=== PATIENT | male | born 1960 | race Caucasian/White ===

== ENCOUNTER → 2020-07-01 07:04 | Outpatient (CLI) | payer BC, SELFPAY ==
[2020-07-01 07:53] LABS: Add Manual Diff / Slide Review NO; Basophils Absolute Auto 0 /uL (0-100); Basophils Percent Auto 1.3 % (0-2); Eosinophils Absolute Auto 100 /uL (0-450); Eosinophils Percent Auto 3.5 % (2-4); Hematocrit 40.3 % (41-53); Hemoglobin 13.5 g/dL (13.5-17.5); Lymphocytes Absolute Auto 1000 /uL (1100-4500); Lymphocytes Percent Auto 30.1 % (25-40); Mean Corpuscular HGB Conc 33.5 % (30-36); Mean Corpuscular Hemoglobin 30.1 PG (26-34); Mean Corpuscular Volume 89.8 fL (80-100); Monocytes Absolute Auto 400 /uL (0-900); Monocytes Percent Auto 12.3 % (3-14); Neutrophils Absolute Auto 1700 /uL (1500-7000); Neutrophils Percent Auto 52.8 % (50-75); Platelet Count 281 X10^3/uL (150-400); Red Blood Cell Count 4.48 X10^6/uL (4.5-5.9); Red Cell Distribution Width 13.6 % (11.6-14.8); White Blood Cell Count 3.3 X10^3/uL (4.5-11.0)
[2020-07-01 08:06] LABS: Hemoglobin A1C% w Est Avg Glu 5.5 % (4.0-6.0)
[2020-07-01 08:41] LABS: BUN Creatinine Ratio 20.6 (6-22); Blood Urea Nitrogen 14 mg/dL (9-20); Carbon Dioxide 29 mmol/L (22-32); Chloride 96 mmol/L (98-107); Estimated Glomerular Filt Rate > 60.0 mL/min (>60); Glucose 93 mg/dL (70-100); HEMOLYSIS < 15 (0-50); Potassium 4.3 mmol/L (3.4-5.1); Sodium 126 mmol/L (137-145)
== END ==
PROVIDERS: Referring Provider Orthopaedic Surgery; Visit Provider Orthopaedic Surgery
DX: Z01.818 Encounter for other preprocedural examination (principal); M25.561 Pain in right knee; R73.9 Hyperglycemia, unspecified; Z01.812 Encounter for preprocedural laboratory examination
CPT/HCPCS: 36415; 80048; 83036; 85025; 93005

== ENCOUNTER → 2020-08-01 09:30 | Outpatient (CLI) | payer BC, SELFPAY ==
[2020-08-01 11:50] LABS: COVID19 -Nasal RAPID Negative (Negative)
== END ==
PROVIDERS: Referring Provider Physician Assistant; Visit Provider Physician Assistant
DX: Z20.828 Contact with and (suspected) exposure to other viral communicable diseases (principal)
CPT/HCPCS: 87635

== ENCOUNTER 2020-08-03 08:33 | Day surgery (SDC) | payer BC, SELFPAY ==
[2020-07-28 08:32] VITALS: BMI 23.3
[2020-08-03] VITALS (18 sets, daily range): BP systolic 93–128; BP diastolic 59–87; PULSE 64–82; RESP 10–20; TEMP 36.1–37.2; O2SAT 93–99; BMI 23.3
[2020-08-03 09:13] LABS: Sodium 130 mmol/L (137-145)
[2020-08-03] MEDS: PREGABALIN 75 MG CAPSULE PO (09:17)
[2020-08-03] MEDS: CELECOXIB 200 MG CAPSULE PO (09:17)
[2020-08-03] MEDS: ACETAMINOPHEN 325 MG TABLET 975 MG PO (09:20)
--- NOTE | 2020-08-03 09:50 | PM.PREOP ---
Pre-operative Note COVID-19 COVID-19 status: Negative Result date/Date tested (Pos, Neg/Pending): 08/01/20 Interval Note History & Physical reviewed/Exam performed by Physician: Yes Changes to H&P: No
--- NOTE | 2020-08-03 10:01 | PM.OP.1 ---
Operative Date/Time/Diagnoses Date of procedure: 08/03/20 Time of procedure: 12:35 Pre-op diagnosis: Right knee osteoarthritis Post-op diagnosis: same Procedure & Clinicians Procedure: Right total knee replacement Same procedure as scheduled: Yes Indications: The patient has had progressively worsening right knee pain with radiographic changes consistent with arthritis. Non-operative management has failed and the patient has requested total knee replacement. The risks, benefits and alternatives to surgery were discussed with the patient prior to proceeding. Risks discussed included, but were not limited to, failure to relieve pain, stiffness, infection, nerve damage, deep venous thrombosis, pulmonary embolism, stroke, coma, heart attack, permanent paralysis and , as well as the potential need for eventual revision of the prosthetic. Surgeon: Parish Meadows Certified Indoor Environmentalist: Namrata Aden Click Yes if Unassisted: No Anesthesia Type: General, Spinal and Local Operative Notes Findings: Widespread hemosiderin deposition. Large effusion. Severe cystic arthritic change the patellofemoral joint and significant medial osteoarthritis. Closure Type: primary Specimen(s): none sent Prosthetic devices, grafts, tissues, transplants, or devices: Implants used in this procedure were manufactured by the [employer] and included the BCS II Journey total knee replacement with a size 7 right Oxinium femur, a size 7 non porous tibial base plate, a 10 mm cross-linked polyethylene insert and a 41 mm oval Lillian II patella. Applied: implant(s) Blood products transfused: none Procedure in detail: The patient was seen in the pre-operative area, where the patient identified the right knee as the operative site and this was marked with my initials. The patient received pre-operative antibiotics, and was taken to the operating room and placed on the operative table in the supine position. After satisfactory anesthesia, a real time trader out was performed. The right leg was encircled with a tourniquet about the proximal thigh, and the leg was prepared from the toes to the tourniquet with ChloroPrep in the usual fashion and draped through sterile drapes. The leg was elevated and exsanguinated with Eschmark bandage and the tourniquet inflated to 250 mmHg pressure. The knee was approached through an approximately 18 cm incision centered over the patella and carried into the knee through a medial parapatellar arthrotomy. The anterior osteophytes and soft tissues were removed. The rotational landmarks of Millard's line and the transepicondylar axis were marked on the femur with electrocautery, and intramedullary guide holes for the femur and tibia were created. The distal femoral cut was made in 6 degrees of valgus using the intramedullary guide at the primary cut setting. The proximal tibial cut was then made using the intramedullary guide, taking 9 mm of bone off the less involved side. The extension gap was checked and the rotation of the femoral component confirmed with the gap balancing system. The anterior, posterior and chamfer cuts were then made. The posterior osteophytes and soft tissues were then removed. The posterior capsule was injected with part of a mixture of 60 ml 0.25% Marcaine mixed with 20 ml Exparel and 4 mg of morphine for post-operative pain control. The remainder of this mixture was injected into the capsule and subcutaneous tissues during cement curing. The tibia was prepared with the rotation set by an extra medullary guide. Trial tibial and femoral components were then placed and the intercondylar notch cut through the femoral trial. Range of motion was 0-135 degrees, with good stability throughout the range. The patella was then cut to accommodate the patellar prosthetic. There was no need for a lateral release. The trials were then removed, and the femoral hole plugged with a bone plug. The bone was prepared with pulsatile lavage, and dried with a sponge. Cement was applied and the final prosthetics placed. Excess cement was removed during and after cement curing. After confirming there was no extruded cement posteriorly, the final tibial insert was placed. The knee was copiously irrigated and the tourniquet deflated. Hemostasis was obtained. The capsule was closed with interrupted # 2 polyester suture. The subcutaneous layer was closed with 3-0 Vicryl, and the skin with a running 3-0 V-Lock suture and Dermabond. An Aquacel Ag dressing was applied and the patient was taken to recovery having tolerated the procedure well. Complications: none Post-operative Condition: stable Disposition: PACU Plan for aftercare: The patient will be maintained on a standard total knee replacement protocol with weight bearing as tolerated. The patient will receive aspirin and sequential compression devices for DVT prophylaxis. The patient will be discharged home when safe for the home environment.
[2020-08-03] MEDS: LACTATED RINGERS 1,000 ML 42 ML IV (10:29)
[2020-08-03] MEDS: CEFAZOLIN 2 GM/100 ML FROZ.PIGGY IV (10:48)
[2020-08-03] MEDS: TRANEXAMIC ACID 1,000 MG VIAL 2000 MG INJ (11:04)
--- NOTE | 2020-08-03 11:14 | SUR.OPER ---
Supine on padded OR bed. Pillow under head, arms secured on padded armboards <90 degree abduction. Safety belt across torso. Non-operative leg secured with tape over blanket over lower leg. Operative leg secured in DeMayo/Leobardo positioner.
[2020-08-03] MEDS: BUPIVACAINE LIPOSOME 266 MG/20 ML VIAL INJ (11:26)
[2020-08-03] MEDS: MORPHINE 4 MG/ML INJ INJ (11:27)
[2020-08-03] MEDS: BUPIVACAINE 0.25% W/ EPI 30 ML VIAL 60 ML INJ (11:28)
[2020-08-03] MEDS: TRANEXAMIC ACID 1,000 MG VIAL 1000 MG INJ (12:07)
[2020-08-03] MEDS: RYTARY 3 EACH PO (13:07)
--- NOTE | 2020-08-03 13:33 | DI.RAD.S_ITS ---
PROCEDURE: XR KNEE RT 1TO2V INDICATIONS: post op TKA. TECHNIQUE: 2 view(s) of the knee acquired. COMPARISON: None. FINDINGS: Bones: Patient is status post knee joint arthroplasty. Hardware components are in expected positions. Visualized bony structures are intact. Soft tissues: Overlying postoperative changes are noted. IMPRESSION: Expected postsurgical change for right knee arthroplasty. Dictated by: Krys Harley MD, PhD on 08/03/2020 at 13:27 Approved by: Krys Harley MD, PhD on 08/03/2020 at 13:28
[2020-08-03] MEDS: ACETAMINOPHEN 325 MG TABLET 650 MG PO ×2 (14:40→20:24)
[2020-08-03] MEDS: LACTATED RINGERS 1,000 ML 100 ML IV (14:41)
[2020-08-03] MEDS: IBUPROFEN 400 MG TABLET PO ×3 (14:43→20:24)
[2020-08-03] MEDS: CARBIDOPA LEVODOPA 3 EACH PO ×2 (18:06→21:10)
[2020-08-03] MEDS: ASPIRIN EC 81 MG TABLET PO (20:24)
[2020-08-03] MEDS: DOCUSATE 100 MG CAPSULE PO (20:24)
--- NOTE | 2020-08-03 22:57 | PC.NURSE ---
Evening Shift Note- Patient unable to void since arrival to unit. Bladder scan showed over 500cc's in bladder. Straight cath patient, drained 800cc's clear kaelyn uribne. Patient tolerated.
[2020-08-04] MEDS: IBUPROFEN 400 MG TABLET PO ×2 (00:47→08:34)
[2020-08-04] MEDS: LACTATED RINGERS 1,000 ML 100 ML IV (00:48)
[2020-08-04] MEDS: CARBIDOPA LEVODOPA 3 EACH PO ×2 (04:34→08:40)
[2020-08-04 04:35] VITALS: BP 129/84; PULSE 84; RESP 18; O2SAT 99
--- NOTE | 2020-08-04 04:46 | PC.NURSE ---
0430 Patient requesting Carbodopa-Levodopa medication. Patient states that the times scheduled by pharmacy are an hour later than his normally scheduled times. He also states that he hasn't been able to urinate postoperatively. Patient states that taking his medication now should help him urinate. Will speak with patient's primary nurse to facilitate conversation with pharmacy to adjust patient's scheduled times for his Carbodopa-Levodopa.
[2020-08-04 06:12] LABS: Hematocrit 35.9 % (41-53); Hemoglobin 12.4 g/dL (13.5-17.5)
--- NOTE | 2020-08-04 07:37 | P.DS_ITS ---
History of Present Illness History of Present Illness Date Patient Seen: 08/04/20 Time Patient Seen: 07:38 Chief complaint: Right Total Knee Arthroplasty *OPB* Narrative: The history and physical are contained in the chart previously completed note. Please refer to that note for this information. Discharge Providers Provider Date of admission: 08/03/20 Discharge Date: 08/04/20 Primary care physician: Doctor Villa MD Consults: 08/03/20 14:10 Consult to Discharge Planning Routine Comment: Consult to Physical Therapy Evaluate & Treat Comment: Physician Instructions: postop TKA protocol Discharge provider: Parish Meadows MD Summary Hospital Course Discharge Diagnosis: 1. Right knee osteoarthritis 2. Post hemorrhagic anemia 3. Postoperative urinary retention Hospital Course: The patient was admitted to the hospital and taken directly to the operating room on August 03, 2020. He underwent a right total knee replacement without difficulty. He was very comfortable overnight however he was unable to urinate and required a single episode a straight catheterization. At the time of this dictation he is undergoing a voiding trial after being administered Flomax. It is the intention that he be discharged later this morning. If he is unable to urinate by the time of discharge a urology consultation will be obtained. Status at Discharge Cognitive/behavioral status at discharge: oriented Functional status at discharge: uses cane/walker Overall status at discharge: patient is progressing back to baseline Time Spent with Patient Time spent: Less than 30 minutes Exam Vital Signs (past 8 hours): - 08/04/20 04:35 Pulse Rate 84 Respiratory Rate 18 Blood Pressure 129/84 Pulse Oximetry 99 Oxygen Delivery Method Room Air Oxygen Flow Rate 0 Narrative Exam Narrative: Right knee wound is dressed with no drainage on the bandage. Calf is soft. Light touch and motion are intact in the right lower extremity. Objective Labs Result Diagrams: 08/04/20 05:35 Labs: Laboratory Results - last 24 hr 08/03/20 08/04/20 08:45 05:35 Hgb 12.4 L Hct 35.9 L Sodium 130 L PFSH Medical History (Updated 07/28/20 @ 09:17 by Tavia Neal RN) Dyskinesia Hyponatremia Insomnia Nocturia Osteoarthritis Parkinson's disease (2004) RLS (restless legs syndrome) Scoliosis Surgical History (Updated 07/28/20 @ 09:17 by Tavia Neal RN) History of colonoscopy with polypectomy History of vasectomy S/P deep brain stimulator placement (2013) Social History household members: spouse Smoking Status: Never smoker alcohol intake: current Discharge Assessment & Plan Assessment and Plan Assessment: The patient is stable postoperative day 1 status post right total knee replacement. He is having minimal pain. He has a mild post hemorrhagic anemia which does not require treatment. As of this dictation he has not been able to urinate spontaneously. Plan of Treatment: We will mobilize the patient this morning. He is currently having a voiding trial after being administered Flomax. If he does not spontaneously void by the time of discharge we will obtain a Urology consult. Plan is for discharge this morning with follow-up in the office in 2 weeks. The patient has oxycodone at home. He also has muscle relaxer at home. He will be instructed to use low- dose aspirin twice a day for DVT prophylaxis. Discharge Plan Discharge Plan Patient Disposition: Home Discharge orders & Medications Discharge Orders: Discharge (Order); Ordered 08/04/20 Ordered By: Parish Meadows Prescriptions: New acetaminophen 325 mg Tablet 650 mg PO TID 30 Days Qty: 180 RF: 0 aspirin 81 mg Tablet,Delayed Release (Dr/Ec) 81 mg PO BID 42 Days Qty: 84 RF: 0 oxycodone 5 mg Tablet 5 mg PO Q4H PRN (Reason: Pain, Moderate (4-6)) Qty: 40 RF: 0 Continued ibuprofen 200 mg Capsule 400 mg PO Q6H PRN (Reason: Pain) RF: 0 Rytary 36.25-145 mg Capsule, Extended Release 3 cap PO 5XD RF: 0 Follow up/Referrals: Miscellaneous,DoctorMD [Primary Care Provider] - Parish Meadows MD [Physician] - 2 Weeks Diet/Activity/Treatments Diet: Diet as Tolerated and Regular Activity: You may bear weight as tolerated on your right leg. Cold/Heat Therapy: Apply ice for 15 minutes every hour as needed to the right knee for pain control. Skin/Wound/Dressing Care Report to your healthcare provider any signs of infection, such as:: chills, fever, night sweats, increased pain, unusual drainage and unusual redness Dressing: Remove the Ritesh wrap 3 days after surgery. You may then shower normally. Leave the deeper dressing in place until follow-up. If the central strip of the deeper dressing becomes saturated with either water or blood, gideon brooks call the office to have it evaluated. Visit Report/Discharge Packet Instructions: DI for Knee Replacement Stand Alone Forms: Surgery Discharge Discharge Data Primary Care Provider: Miscellaneous,Doctor Attending Provider: Parish Meadows
[2020-08-04 07:41] VITALS: BP 126/81; PULSE 81; RESP 14; TEMP 37.2; O2SAT 98
[2020-08-04] MEDS: TAMSULOSIN 0.4 MG CAPSULE PO (08:32)
[2020-08-04] MEDS: ASPIRIN EC 81 MG TABLET PO (08:34)
[2020-08-04] MEDS: DOCUSATE 100 MG CAPSULE PO (08:34)
[2020-08-04] MEDS: ACETAMINOPHEN 325 MG TABLET 650 MG PO (08:35)
--- NOTE | 2020-08-04 09:23 | CM.DANOTE ---
Addendum entered by Carol Puga LPN 08/04/20 11:02: Met now with pt as planned. Introduced self and role. Pt is found up, dressed, bags packed and confirms that he is feeling ready to go. PT Marifer did see him and has verbally cleared him for d/c to home setting today. Her note is pending. Pt confirms his will pick him up and be providing prn supportive assist. PCP: Dr. Camara, neurologist at [facility]: confirmed by pt. Home today as planned. Addendum entered by Carol Puga LPN 08/04/20 09:24: DCP: assessment: case received, EMR reviewed. DC order from Dr. Meadows noted. PT is ordered but no notes are available at this time for review. PT is a 59 year old male who admitted yesterday for a scheduled R TKA. Payer: [facility] [place] Pt carries a diagnosis of Parkinson's disorder and is on medication for same. P: discuss in Team Rounds and then meet with pt to follow up for d/c issues/options. Original Note: Discharge Planning/Care Management CM Discharge Assessment Start: 08/04/20 09:22 Freq: Status: Active Protocol: Document 08/04/20 09:22 ITV (Rec: 08/04/20 09:23 [facility] [id number]) Discharge Planning Assessment Advance Directives? No Advance Directives on File No History Provided By Patient,Medical Record Prior Living Arrangements House Household Members spouse Review Status In Process Pre-Anesthesia Assessment Start: 07/28/20 08:32 Freq: Status: Complete Protocol: Document 07/28/20 08:32 CAB (Rec: 07/28/20 09:54 CAB [id number]) Pre-Anesthesia Assessment Preferred Name Clive or Nando Patient Information Reviewed Via Phone Assessment Assessment Completed With Patient Diagnostic Results BMP/CMP,CBC,EKG Comment Labs/EKG @ 07/01/20 COVID screen @ 08/01/20 Primary Care Provider None Seen Specialist in Last 12 Months Yes Specialist Seen Orthopedist,Other Comment Neurology Primary Language Palauan Waist Presser Required No Height 187.96 cm Weight 82.554 kg Body Mass Index (BMI) 23.3 Hearing Ability Normal Visual Impairment No Limitations Visual Assist Magnifying Glass Dentition Type Teeth, Natural Present Barriers to Learning None Hx Anesthesia Reactions No Hx Family Anesthesia Reaction No Hx Malignant Hyperthermia No Hx Blood Transfusions No Anesthesia Review Requested Yes: PAC courtesy re: Parkinson's, abnormal labs alcohol intake current alcohol intake frequency holidays/special occasions only Smoking Status Never smoker Substance Use Type other Comment CBD w/THC dropper to assist with sleep Pain Present Pain Reported Musculoskeletal Symptoms Abnormal Gait,Difficulty Walking,Joint Pain,Muscle Spasms,Tremors History of Falling (Recent or History of No ) Patient is completely paralyzed or No completely immobile Mental Status Oriented to own ability Is patient on oxygen? No Does patient have CARABALLO/SOB No Hx Sleep Apnea No Currently Taking a Beta Caro No Can You Climb a Flight of Stairs Without Yes SOB Hx Chest Pain No Hx SOB No Hx Syncope or Dizziness No Anti-Coagulant Therapy No Has a Nuclear Auxiliary Operator No Cardiac Testing No Hx Pacemaker/ICD No Pacemaker Rep Required? No Cardiac Clearance Received Not Applicable Diet Type At Home Regular dysphagia Yes: Occasional r/t Parkinson' s Bladder Pattern Nocturia Urinary Catheter Present No Hx Urinary Self Catheterization No Diabetes No HgbA1C 5.5 Date 07/01/20 Hx Drug Resistant Organism No Presence of External or Internal Medical Yes: Deep brain stimulator Devices Have you had any close contact with No someone diagnosed with COVID-19? Marital Status Lives With spouse Prior Living Arrangements House Number of Floors (Floors) Two Floors Support System Spouse Does the Patient Have Assistance After Yes Surgery Patient Discharge Plan Description Return Home Comment Pt advised 1 day length of stay per surgeon Feels Safe in Current Environment Yes Been Physically Hurt or Threatened By a No Person in Current Environment Do you have thoughts of harming yourself None or others? Are you currently considering suicide? No Do you have a plan to hurt yourself or No Plan others? Do You Have Any Spiritual Beliefs That No May Affect Your HC Choices? Do You Have Any Cultural Practices That No May Affect Your HC Choices? Who Can We Speak to About Patient's Care Family, friends Identifying Code for Release of Patient Declines to issue Information Health Care Proxy/Next of Kin Rose () Health Care Proxy Emergency Contact Name Rose () Emergency Contact Advance Directives? Yes Advance Directives on File No Requested Patient Bring Advanced Yes Directives DOS Power of Behavioral Science Chair Yes Power of Behavioral Science Chair Name Rose () Power of Behavioral Science Chair PAC Instructions Durable medical equipment, Medications to take/avoid, Nasal antibiotic,No ETOH/ petroleum product on skin DOS, NPO,Pre-surgical wash,Sturdy shoes/comfortable clothes,Do not bring valuables and remove jewelry
--- NOTE | 2020-08-04 10:15 | PT.IIE ---
Current Diagnoses Unilateral primary osteoarthritis, right knee (08/03/20) Surgery Performed Operation Date: 08/03/20 10:15 Actual Procedures p Total Knee Arthroplasty(Right) - Parish Meadows MD Surgical History (Last Updated 07/28/20 @ 09:17 by Tavia Neal RN) History of colonoscopy with polypectomy History of vasectomy S/P deep brain stimulator placement (2013) Medical History (Last Updated 07/28/20 @ 09:17 by Tavia Neal RN) Dyskinesia Hyponatremia Insomnia Nocturia Osteoarthritis Parkinson's disease (2004) RLS (restless legs syndrome) Scoliosis Physical Therapy Inpatient Evaluation/Re-Eval M1 PT/OT-IP Prior Functional Status Start: 08/03/20 15:17 Freq: NEEDED Status: Discharge Protocol: Document 08/04/20 10:10 AW (Rec: 08/04/20 13:22 AW [id number]) Medical Review Prior Functional Status Medical History Reviewed Yes Communication Pt is an effective verbal communicator but presents with hypophonia typical of Parkinson's disease. Mobility and Gait Independent. Activities of Daily Living and IADL's Indepedent. Prior Functional Level (Other details) Pt was diagnosed with Parkinson's disease 16 years ago. He has had no recent changes in his carbidopa/ levodopa dosing or frequency. He had DBS 6 years ago and is followed by Dr. Camara at [facility] neurology. Social History Household Members spouse Living Arrangements House Number of Floors (Floors) Two Floors Number of Stairs To Enter/Railing? Pt enters the house at ground level and must climb 10 steps with left rail and 4 steps without rail to access bedroom level. Pt plans to go upstairs once home and stay there as long as needed. Home Environment High Toilet,Tub/Shower Home Equipment Front Wheel Walker,Straight Cane,Crutches,Raised Toilet Seat Without Armrests,Hand Held Shower,Grab Bars In Shower Employment Status Retired Additional Social History Comment Pt is a retired [employer] worker. He lives in [place] with his , Rose, who supervises clinical drug trials and is currently working from home. She will be available to assist as needed. Pt has arranged for a friend to be present when he goes home to assist with stairs. M2 PT-IP Current Condition Start: 08/03/20 15:17 Freq: NEEDED Status: Discharge Protocol: Document 08/04/20 10:10 AW (Rec: 08/04/20 13:22 AW [id number]) Physical Therapy Current Condition Current Condition Evaluation Date 08/04/20 Treatment Diagnosis R TKA; PD; difficulty in walking Onset Date 08/03/20 Weight Bearing Status Weight Bearing Status Weight Bear as Tolerated M3 PT-IP Subjective Start: 08/03/20 15:17 Freq: NEEDED Status: Discharge Protocol: Document 08/04/20 10:10 AW (Rec: 08/04/20 13:22 AW [id number]) Subjective Physical Therapy Visit Type Type Initial Evaluation Visit Start Time 09:41 Visit Stop Time 10:10 Total Visit Minutes 29 Number of GLOST TILE SORTER Visits 0 Physical Therapy Visit Comments Patient Comments Pt is willing to participate with PT Patient Goals To go home today Therapy Pain Assessment Pain When Pain Assessed During Mobility Pain Present Pain Present Pain Reported Location right knee Intensity 4 Scale Used 3/10 at rest Pain Management Techniques Timing of Activity with Medications M4 PT-IP Mobility and Gait Start: 08/03/20 15:17 Freq: NEEDED Status: Discharge Protocol: Document 08/04/20 10:10 AW (Rec: 08/04/20 13:22 AW [id number]) PT-Bed Mobility Assessment Sit to Supine Sit to Supine Standby Assistance Scooting Scooting to Edge of Bed Standby Assistance PT-Transfer Assessment Sit to and From Stand Sit to and from Stand Standby Assistance Equipment Transfer Assistive Device Gait Belt,Front Wheeled Walker Orthotic/Prosthetic Devices or Brace: No Transfers Transfer Destination Toilet Transfer Technique pt ambulated with FWW Transfer Ability Level of Assist Standby Assistance Comments Mobility Comments Pt was sitting EOB as PT arrived. BP was 126/81 HR 77. Pt stood and ambulated around the unit with FWW SBA, returned to the room, and transferred to the toilet SBA. He was unable to void but attempted to do so in standing with urinal and in sitting on the toilet. Pt requested to stay on the toilet and agreed to use the call light for assist when finished. Gait Assessment Gait Gait Assistance Required: Standby Assistance Distance (Feet) 220 Able to Maintain Weight Bearing Status Yes During Gait Assistive Devices Assistive Device Gait Belt,Front Wheeled Walker Orthotic/Prosthetic Devices or Brace: No Gait Deviations General Gait Pattern Antalgic,Decreased Stride Length,Decreased Feet Clearance,Flexed Trunk,Step-to Gait Factors Limiting Gait Function Factors Limiting Gait Function Decreased Activity Tolerance, Decreased Strength,Limited Range of Motion,Pain Comments Gait Comments Pt ambulated with increased trunk flexion but minimal weightbearing through the walker. Pt agreed to use the walker at least until evaluated by outpatient PT. Stair Climbing Assessment Evaluation Level of Assist On Stairs Standby Assistance,Contact Guard Assistance Devices Stair Climbing Assistive Devices Left Railing Technique/Endurance Stair Climbing Direction Ascend and Descend Stair Climbing Technique Step to Step Number of Steps Climbed 3 Query Text: Stair Climbing Set # Repetitions (reps) 2 Comments Stair Climbing Comments Pt ascended/descended 3 steps with left rail x 2. He also completed platform step wtih JUSTICE COURT JUDGE on the right side with no sign of instability or imbalance. PT-Balance Assessment Sitting Balance and Reactions Static Sitting Balance Ability Good Dynamic Sitting Balance Ability Good Standing Balance and Reactions Static Standing Balance Ability Good Dynamic Standing Balance Ability Good M5 PT-IP Objective Assessments Start: 08/03/20 15:17 Freq: NEEDED Status: Discharge Protocol: Document 08/04/20 10:10 AW (Rec: 08/04/20 13:22 AW [id number]) Orientation Orientation/Cognition Level of Alertness Alert Orientation Name,Day of Week,Place, Situation Language Function Ability No Deficits Noted Safety Awareness Understands Safety Issues Memory Description No Deficits Noted Gross Range of Motion Lower Extremity ROM Assessment Right Impaired Strength Lower Extremity Strength Assessment Right Impaired Hip 4/5 Knee 3+/5 Comments Strength Comments LLE grossly 5/5 Coordination Assessment Gross Coordination Gross Coordination WNL Sensation Assessment Sensation Gross Sensation WNL M6 PT-IP Treatment Start: 08/03/20 15:17 Freq: NEEDED Status: Discharge Protocol: Document 08/04/20 10:10 AW (Rec: 08/04/20 13:22 AW [id number]) Physical Therapy Treatment Exercises Exercises Ankle Pumps,Quad Sets,Heel Slides,Passive Knee Extension Hang Education Education Provided Precautions,Weight Bearing Status,Post-Op Packet,Safety Other Treatments Other Treatment Performed Provided education on role of PT, plan of care, weightbearing status, and safe use of FWW. M7 PT-IP Assessment and Plan Start: 08/03/20 15:17 Freq: NEEDED Status: Discharge Protocol: Document 08/04/20 10:10 AW (Rec: 08/04/20 13:22 AW [id number]) PT Summary Assessment and Plan Potential Rehabilitation Potential Excellent Status of Condition at Evaluation Stable Summary Impairments Pain,ROM,Strength,Balance, Transfers,Gait,Activity Tolerance Assessment Summary Clive is an active 59 yo man with Parkinson's disease who was seen for PT evaluation on POD1 following R TKA. He is a retired [employer] worker who lives with his in [place]. Pt is independent in all regards at baseline. He required no more than SBA for all mobilities on evaluation and is able to safely navigate stairs. He is safe for discharge to home with assist and outpatient PT once medically cleare. Frequency of Treatment Frequency Of Treatment Discharge Recommendations To Nursing Amount of Assist Needed Standby Assistance Discharge Recommendations PT Discharge Recommendations Home with Assistance, Outpatient PT Transportation Needs at Discharge Private Vehicle
--- NOTE | 2020-08-04 11:38 | PC.NURSE ---
Patient dressed independently. DC instructions given, discussed- medication instructions, post-op safety instructions, dressing instructions, s/s of infection, and reasons to contact surgeon's office. IV removed, intact. Personal medication sent from pharmacy and personal belongings given to patient. Patient brought to main entrance by VISITOR SERVICES REPRESENTATIVE, meeting in POV.
== END 2020-08-04 11:41 | disposition home or self-care (01) ==
LOC: OR 08:35 → AC 08:36
PROVIDERS: Referring Provider Orthopaedic Surgery; Visit Provider Orthopaedic Surgery
PROC: 0SRC0JZ Replacement of Right Knee Joint with Synthetic Substitute, Open Approach (ICD-10-PCS; CPT 27447; principal; 2020-08-03 10:15)
DX: M17.11 Unilateral primary osteoarthritis, right knee (principal); G20 Parkinson's disease
CPT/HCPCS: 27447; 36415; 73560; 84295; 85014; 85018; 97161; C1776; C9290; J0690; J1100; J2250; J2270; J2274; J2405; J2704; J3010

== ENCOUNTER 2020-08-05 14:50 | Day surgery (SDC) | payer BC, SELFPAY ==
[2020-08-03 14:47] VITALS: BMI 23.3
[2020-08-05] VITALS (15 sets, daily range): BP systolic 93–143; BP diastolic 52–87; PULSE 62–87; RESP 13–20; TEMP 36.4–36.9; O2SAT 94–100; BMI 23.7
[2020-08-05 15:44] LABS: COVID19 -Nasal RAPID Negative (Negative)
[2020-08-05] MEDS: LACTATED RINGERS 1,000 ML 42 ML IV (16:47)
[2020-08-05] MEDS: ACETAMINOPHEN 325 MG TABLET 975 MG PO (16:49)
[2020-08-05] MEDS: CEFAZOLIN 2 GM/100 ML FROZ.PIGGY IV (17:30)
--- NOTE | 2020-08-05 17:50 | SUR.OPER ---
Supine on padded OR bed, head on pillow, arms secured on padded arm boards at <90 degrees abduction, legs uncrossed, safety belt at pelvis, right leg under control of surgeon, tape over blanket over left lower leg.
[2020-08-05] MEDS: fentaNYL 100 MCG/2 ML INJ IV ×2 (18:43→18:52)
--- NOTE | 2020-08-05 18:45 | PM.OP.1 ---
Operative Date/Time/Diagnoses Date of procedure: 08/05/20 Time of procedure: 18:45 Pre-op diagnosis: Postoperative hematoma status post right total knee Post-op diagnosis: same Procedure & Clinicians Procedure: I and D of right knee hematoma including arthrotomy Same procedure as scheduled: Yes Indications: Patient is a 59-year-old gentleman who underwent a total knee replacement on Tuesday August 04, 2020. He was discharged yesterday. He was seen in clinic today with the spontaneous decompression of a subcutaneous hematoma. After discussion the risks benefits and alternatives it was decided to take him to the operating room for drainage of the hematoma, cultures and hemostasis. He agreed to this after discussion the risks benefits and alternatives. Risks discussed included but were not limited to: Failure to improve, stiffness, infection, nerve damage, deep venous thrombosis, pulmonary embolism, stroke, myocardial infarction, permanent paralysis and . Surgeon: Parish Meadows Click Yes if Unassisted: Yes Anesthesia Type: General Operative Notes Findings: Significant subcutaneous hematoma. There is also a heme arthrosis. These were both drained and cultured. Closure Type: primary Specimen(s): other (Swabs for culture from both superficial and deep fluid collections.) Prosthetic devices, grafts, tissues, transplants, or devices: None Estimated Blood Loss (mL): 200 Blood products transfused: none Tourniquet time (min): 19 Procedure in detail: The patient was seen in the preoperative area where it was confirmed the right leg was the operative site and this was marked with my initials. He did receive preoperative antibiotics. Was taken to the operating room and placed on the operating room table in a supine position where he underwent induction of general anesthetic. A tourniquet was placed about the patient's proximal right leg and his dressing was removed. The leg was prepared with ChloraPrep as there were no open wounds. The leg was draped through sterile drapes. His leg was elevated for 1 minutes to exsanguinated and the tourniquet inflated to 250 mm of mercury. The prior incision was opened by cutting the sutures with a scalpel. The subcutaneous hematoma was spontaneously decompressed. This was evacuated further by suction. Cultures were obtained with swabs. A total of 3 L of pulsatile lavage solution was used to wash out the hematoma cavity. I then compressed firmly on the patella and suprapatellar pouch to increase the pressure inside the joint. A very small trickle of fluid was seen exiting the arthrotomy from surgery. As a result I elected to wash out the knee as well. The sutures from the arthrotomy closure were removed. A modest heme arthrosis was encountered. This was evacuated with suction and additional cultures were obtained. An additional 3 L of fluid was used to irrigate this with the pulse lavage. At this point the wound was packed with sponges. The tourniquet was deflated. Hemostasis was obtained with electrocautery. The joint was closed once again with interrupted #1 Ethibond sutures. Some poorly vascularized hypertrophic bursal tissue was excised from just anterior to the patella. The subcutaneous layer was closed with 3-0 Vicryl. The skin was closed with meena. A Pravin dressing was applied. This was followed by compression dressing with a 6 in Ritesh wrap. Patient was then transferred to the recovery room in good condition having tolerated the procedure well. Complications: none Post-operative Condition: stable Disposition: PACU Plan for aftercare: The patient will be maintained in the hospital overnight to complete 24 hours of IV antibiotic treatment. He will then be discharged on oral Keflex for 1 week while we await culture results.
[2020-08-05] MEDS: ONDANSETRON 4 MG/2 ML INJ IV (19:02)
[2020-08-05] MEDS: OXYCODONE IR 5 MG TABLET PO (19:02)
[2020-08-05] MEDS: LACTATED RINGERS 1,000 ML 100 ML IV (19:41)
[2020-08-05] MEDS: HYDROMORPHONE 0.5 MG INJ 0.2 MG IV (19:52)
[2020-08-05] MEDS: CARBIDOPA LEVODOPA 3 EACH PO (19:56)
[2020-08-05] MEDS: ASPIRIN EC 81 MG TABLET PO (21:06)
[2020-08-05] MEDS: ACETAMINOPHEN 325 MG TABLET 650 MG PO (21:06)
[2020-08-05] MEDS: DOCUSATE 100 MG CAPSULE PO (21:06)
[2020-08-06] MEDS: OXYCODONE IR 5 MG TABLET PO ×3 (00:40→08:30)
[2020-08-06] MEDS: CEFAZOLIN 2 GM/100 ML FROZ.PIGGY IV ×2 (02:02→08:28)
[2020-08-06] MEDS: HYDROMORPHONE 0.5 MG INJ 0.2 MG IV ×2 (03:25→06:39)
[2020-08-06] MEDS: CARBIDOPA LEVODOPA 3 EACH PO ×2 (04:27→08:31)
[2020-08-06 04:50] VITALS: BP 147/91; PULSE 83; RESP 16; TEMP 36.8; O2SAT 98
[2020-08-06 05:03] LABS: Hematocrit 28.7 % (41-53); Hemoglobin 9.9 g/dL (13.5-17.5)
[2020-08-06] MEDS: DOCUSATE 100 MG CAPSULE PO (08:28)
[2020-08-06] MEDS: ACETAMINOPHEN 325 MG TABLET 650 MG PO (08:29)
[2020-08-06 08:31] VITALS: BP 154/85; PULSE 88; RESP 16; TEMP 36.7; O2SAT 98
--- NOTE | 2020-08-06 08:47 | PM.PNPO.1 ---
Subjective Subjective Date Patient Seen: 08/06/20 Time Patient Seen: 08:48 Interval history: POD #1 s/p I+D with Dr. Meadows. Patient doing well this AM. Exam Vital Signs (past 8 hours): - 08/06/20 04:50 08/06/20 08:31 Temperature 98.2 F 98.1 F Pulse Rate 83 88 Respiratory Rate 16 16 Blood Pressure 147/91 H 154/85 H Pulse Oximetry 98 98 Oxygen Delivery Method Room Air Oxygen Flow Rate 0 Narrative Exam Narrative: Patient sitting up in bed no acute distress. Alert orient x3. Calves are soft, compressible, nontender bilaterally. Pravin dressing CDI, on and functioning. DP pulses 2+. He is able to actively dorsiflex and plantar flex. Sensation intact light touch throughout bilateral lower extremities. Objective Labs Result Diagrams: 08/06/20 04:45 Labs: Laboratory Results - last 24 hr 08/05/20 08/06/20 15:10 04:45 Hgb 9.9 L Hct 28.7 L COVID-19 PCR Negative PFSH Medical History Dyskinesia Hyponatremia Insomnia Nocturia Osteoarthritis Parkinson's disease (2004) RLS (restless legs syndrome) Scoliosis Surgical History History of colonoscopy with polypectomy History of vasectomy S/P deep brain stimulator placement (2013) Social History household members: spouse Smoking Status: Never smoker alcohol intake: current Assessment & Plan Post-op Postoperative Procedures: Procedures Operation Date: 08/05/20 19:45 Actual Procedures Side Surgeon p ARTHROTOMY, RIGHT KNEE Right Parish Meadows MD POD #1
--- NOTE | 2020-08-06 08:55 | P.DS_ITS ---
History of Present Illness History of Present Illness Date Patient Seen: 08/06/20 Time Patient Seen: 08:55 Chief complaint: SDC Narrative: The patient is a 59 yo man who presented 2 days s/p right total knee replacement with bloody drainage from the surgical wound. He was admitted to drain a postoperative hematoma. Discharge Providers Provider Date of admission: 08/05/20 Discharge Date: 08/06/20 Primary care physician: Doctor Villa MD Consults: 08/05/20 19:34 Consult to Discharge Planning Routine Comment: Consult to Physical Therapy Evaluate & Treat Comment: Physician Instructions: postop TKA protocol Discharge provider: Parish Meadows MD Summary Hospital Course Discharge Diagnosis: 1. Post operative hematoma after total knee 2. Post hemorrhagic anemia Hospital Course: The patient was admitted to the hospital and taken directly to the operating room on August 05, 2020. He underwent a drainage of a subcutaneous hematoma and evacuation of the knee joint as well with extensive irrigation. Cultures were obtained but are negative to date. There was no obvious sign of infection. On postoperative day 1 he is ambulatory. His dressing is clean dry and intact with no signs of drainage. Status at Discharge Cognitive/behavioral status at discharge: oriented Functional status at discharge: uses cane/walker Overall status at discharge: patient is progressing back to baseline Time Spent with Patient Time spent: Less than 30 minutes Exam Vital Signs (past 8 hours): - 08/06/20 04:50 08/06/20 08:31 Temperature 98.2 F 98.1 F Pulse Rate 83 88 Respiratory Rate 16 16 Blood Pressure 147/91 H 154/85 H Pulse Oximetry 98 98 Oxygen Delivery Method Room Air Oxygen Flow Rate 0 Narrative Exam Narrative: The suction drainage dressing shows no sign of any drainage from the wound. No surrounding erythema. Calf is soft. Light touch and motion are intact. The patient is ambulatory. Objective Labs Result Diagrams: 08/06/20 04:45 Labs: Laboratory Results - last 24 hr 08/05/20 08/06/20 15:10 04:45 Hgb 9.9 L Hct 28.7 L COVID-19 PCR Negative PFSH Medical History Dyskinesia Hyponatremia Insomnia Nocturia Osteoarthritis Parkinson's disease (2004) RLS (restless legs syndrome) Scoliosis Surgical History History of colonoscopy with polypectomy History of vasectomy S/P deep brain stimulator placement (2013) Social History household members: spouse Smoking Status: Never smoker alcohol intake: current Discharge Assessment & Plan Assessment and Plan Assessment: Stable postoperative day 1 status post evacuation of a postoperative hematoma. This did not appear to be infected. There does not appear to be any drainage on the bandage today. Plan of Treatment: Discharge to home after 24 hours of IV antibiotics has been completed. Oral Keflex at home on a prophylactic basis until final cultures return negative. He has been given a prescription for Keflex and a refill of his oxycodone. Follow- up as scheduled in my office. Discharge Plan Discharge Plan Patient Disposition: Home Discharge orders & Medications Discharge Orders: Discharge (Order); Ordered 08/06/20 Ordered By: Alyssa Levi Prescriptions: New docusate sodium [DOK] 100 mg Capsule 100 mg PO BID Qty: 30 RF: 0 oxycodone 5 mg Tablet 5 mg PO Q4H PRN (Reason: Pain, Moderate (4-6)) Qty: 30 RF: 0 cephalexin [Keflex] 500 mg capsule 500 mg PO QID 7 Days Qty: 28 RF: 0 Continued ibuprofen 200 mg Capsule 400 mg PO Q6H PRN (Reason: Pain) RF: 0 Rytary 36.25-145 mg Capsule, Extended Release 3 cap PO 5XD RF: 0 acetaminophen 325 mg Tablet 650 mg PO TID 30 Days Qty: 180 RF: 0 aspirin 81 mg Tablet,Delayed Release (Dr/Ec) 81 mg PO BID 42 Days Qty: 84 RF: 0 Discontinued oxycodone 5 mg Tablet 5 mg PO Q4H PRN (Reason: Pain, Moderate (4-6)) Qty: 40 RF: 0 Follow up/Referrals: Doctor Driver MD [Primary Care Provider] - Parish Meadows MD [Physician] - Skin/Wound/Dressing Care Report to your healthcare provider any signs of infection, such as:: chills, fever and increased pain Dressing: Leave in place until appointment. If dressing stops working please replace batteries. Please bring dressing box to first appointment. Discharge Data Primary Care Provider: Villa,Doctor Attending Provider: Parish Meadows
--- NOTE | 2020-08-06 09:48 | CM.DANOTE ---
DCP; Case received, EMR reviewed and met with patient. Introduced self and role. Was able to obtain information from patient regarding his baseline status at home prior to surgery, as well as his current living situation. DCP assessment was completed based on information currently available. Patient is a 59 year old male who admitted yesterday morning to the care of the orthopedic team. PCP: None Payer: [facility] Out of [facility]. Patient came to the hospital for a surgical procedure. He had been here recently, Monday was discharged, for a right total knee replacement. He developed a post op hematoma, and had an I&D of his knee yesterday. Patient received 24 hours of IV ABO, and is expected to discharge on oral ABO. Met with patient in his room. He was sitting up in his bed eating breakfast, alert and oriented. He resides in [place] with his spouse, Rose. He has history of Parkinsons as well, and is not currently driving. He uses a FWW for home use at his baseline. He mentioned that he does have stairs in his home that he needs to navigate. Asked patient if he has primary provider, which he stated, he does not currently have. Asked him if he wanted resources for providers in the area for him, and he declined, stated, not at this time. P: Patient is to discharge home today. He will be working with P.T. before discharge. Cindy Klein RN/Hose Builder
--- NOTE | 2020-08-06 10:05 | PC.NURSE ---
PT PREPARED FOR DISCHARGE- IV OUT, PAIN CONTROLLED - TAUGHT ABOUT NAHID DRAIN AND PLANS FOR FOLLOW UP- AWAITING TRANSPORTATION BY AT THIS TIME
--- NOTE | 2020-08-06 11:28 | PT.IIE ---
Current Diagnoses Contusion of right knee, initial encounter (08/05/20) Surgery Performed Operation Date: 08/05/20 19:45 Actual Procedures p ARTHROTOMY, RIGHT KNEE(Right) - [place] MD Surgical History (Last Reviewed 08/06/20 @ 08:49 by Alyssa Levi PA-C) History of colonoscopy with polypectomy History of vasectomy S/P deep brain stimulator placement (2013) Medical History (Last Reviewed 08/06/20 @ 08:49 by Alyssa Levi PA-C) Dyskinesia Hyponatremia Insomnia Nocturia Osteoarthritis Parkinson's disease (2004) RLS (restless legs syndrome) Scoliosis Physical Therapy Inpatient Evaluation/Re-Eval M1 PT/OT-IP Prior Functional Status Start: 08/06/20 08:44 Freq: NEEDED Status: Discharge Protocol: Document 08/06/20 11:11 AW (Rec: 08/06/20 11:28 AW [id number]) Medical Review Prior Functional Status Medical History Reviewed Yes Communication WNL. Pt presents with hypophonia typical of PD. Mobility and Gait Pt had R TKA on 08/03/20. Went home and up his stairs. He typically gets up to ambulate >10 times per night to alleviate rigidity/stiffness. Pt reports he did this the night he went home using FWW but does not feel he overdid any activity. Activities of Daily Living and IADL's IND Prior Functional Level (Other details) Pt was diagnosed with PD 16 years ago. No recent changes in medication dosing or frequency. DBS was placed 6 years ago with good effect. Pt is followed by Dr. Camara at [facility] neurology. Social History Household Members spouse Living Arrangements House Number of Floors (Floors) Two Floors Number of Stairs To Enter/Railing? Pt enters the house at ground level and must climb 10 steps with left rail and 4 steps without rail to access bedroom level. Pt plans to go upstairs once home and stay there as long as needed. 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 He lives in [place] with his , Rose, who supervises clinical drug trials and is currently working from home. She will be available to assist as needed. Pt has arranged for a friend to be present when he goes home to assist with stairs. M2 PT-IP Current Condition Start: 08/06/20 08:44 Freq: NEEDED Status: Discharge Protocol: Document 08/06/20 11:11 AW (Rec: 08/06/20 11:28 AW [id number]) Physical Therapy Current Condition Current Condition Evaluation Date 08/06/20 Treatment Diagnosis s/p I&D right knee; difficulty in walking Onset Date 08/05/20 Weight Bearing Status Weight Bearing Status Weight Bear as Tolerated M3 PT-IP Subjective Start: 08/06/20 08:44 Freq: NEEDED Status: Discharge Protocol: Document 08/06/20 11:11 AW (Rec: 08/06/20 11:28 AW [id number]) Subjective Physical Therapy Visit Type Type Initial Evaluation Visit Start Time 09:15 Visit Stop Time 09:34 Total Visit Minutes 19 Physical Therapy Visit Comments Patient Comments When can I go home? Therapy Pain Assessment Pain When Pain Assessed During Mobility Pain Present Pain Present Pain Reported Location right knee Intensity 4 Scale Used Numeric (0 - 10) Pain Management Techniques Apply Cold,Timing of Activity with Medications M4 PT-IP Mobility and Gait Start: 08/06/20 08:44 Freq: NEEDED Status: Discharge Protocol: Document 08/06/20 11:11 AW (Rec: 08/06/20 11:28 AW [id number]) PT-Bed Mobility Assessment Supine to Sit Supine to Sit Standby Assistance Scooting Scooting to Edge of Bed Standby Assistance PT-Transfer Assessment Sit to and From Stand Sit to and from Stand Standby Assistance,Use of Upper Extremities Equipment Transfer Assistive Device Gait Belt,Front Wheeled Walker Orthotic/Prosthetic Devices or Brace: No Transfers Transfer Destination Chair Transfer Technique Stand Step Pivot Transfer Ability Level of Assist Standby Assistance Comments Mobility Comments Pt completed all mobility SBA with minimal WB through the FWW. Gait Assessment Gait Gait Assistance Required: Standby Assistance Distance (Feet) 200 Able to Maintain Weight Bearing Status Yes During Gait Assistive Devices Assistive Device Gait Belt,Front Wheeled Walker Orthotic/Prosthetic Devices or Brace: No Gait Deviations General Gait Pattern Antalgic,Decreased Stride Length,Decreased Feet Clearance,Flexed Trunk,Step-to Gait Factors Limiting Gait Function Factors Limiting Gait Function Decreased Activity Tolerance, Decreased Strength,Pain,Poor Balance Comments Gait Comments See mobility comments. Stair Climbing Assessment Evaluation Level of Assist On Stairs Standby Assistance Devices Stair Climbing Assistive Devices Front Wheel Walker Technique/Endurance Stair Climbing Direction Ascend and Descend Stair Climbing Technique Step to Step Number of Steps Climbed 1 Query Text: Stair Climbing Set # Repetitions (reps) 2 PT-Balance Assessment Sitting Balance and Reactions Static Sitting Balance Ability Normal Dynamic Sitting Balance Ability Normal Standing Balance and Reactions Static Standing Balance Ability Good Dynamic Standing Balance Ability Good Device Used fww M5 PT-IP Objective Assessments Start: 08/06/20 08:44 Freq: NEEDED Status: Discharge Protocol: Document 08/06/20 11:11 AW (Rec: 08/06/20 11:28 AW [id number]) Orientation Orientation/Cognition Level of Alertness Alert Orientation Name,Age,Birthday,Month,Date, Year,Day of Week,Place, Situation Safety Awareness Understands Safety Issues Memory Description No Deficits Noted Gross Range of Motion Lower Extremity ROM Assessment Right Impaired Strength Lower Extremity Strength Assessment Right Impaired Coordination Assessment Gross Coordination Gross Coordination WNL Sensation Assessment Sensation Gross Sensation WNL Muscle Tone Muscle Tone WNL Yes M6 PT-IP Treatment Start: 08/06/20 08:44 Freq: NEEDED Status: Discharge Protocol: Document 08/06/20 11:11 AW (Rec: 08/06/20 11:28 AW [id number]) Physical Therapy Treatment Exercises Exercises Ankle Pumps,Quad Sets,Heel Slides,Passive Knee Extension Hang Education Education Provided Precautions,Weight Bearing Status,Post-Op Packet,Safety M7 PT-IP Assessment and Plan Start: 08/06/20 08:44 Freq: NEEDED Status: Discharge Protocol: Document 08/06/20 11:11 AW (Rec: 08/06/20 11:28 AW [id number]) PT Summary Assessment and Plan Potential Rehabilitation Potential Excellent Status of Condition at Evaluation Stable Summary Impairments Pain,ROM,Strength,Balance,Bed Mobility,Transfers,Gait, Activity Tolerance Assessment Summary Clive was seen for PT evaluation on POD0 following I &D right knee 2 days after R TKA. At baseline, pt is independent in all regards. He required no more than SBA for all mobility with FWW on evaluation and will be safe to discharge home with assist and outpatient PT once cleared medically. Pt agrees to keep outpatient PT appointment on 08/13/20. Frequency of Treatment Frequency Of Treatment Discharge Recommendations To Nursing Amount of Assist Needed Standby Assistance Discharge Recommendations PT Discharge Recommendations Home with Assistance, Outpatient PT Transportation Needs at Discharge Private Vehicle
== END 2020-08-06 10:30 | disposition home or self-care (01) ==
LOC: OR 14:51 → AC 19:33
PROVIDERS: Referring Provider Orthopaedic Surgery; Visit Provider Orthopaedic Surgery
PROC: (CPT 27310; principal; 2020-08-05 19:45)
DX: M96.840 Postprocedural hematoma of a musculoskeletal structure following a musculoskeletal system procedure (principal); Z96.651 Presence of right artificial knee joint; M17.11 Unilateral primary osteoarthritis, right knee; G20 Parkinson's disease; E87.1 Hypo-osmolality and hyponatremia; Z20.828 Contact with and (suspected) exposure to other viral communicable diseases
CPT/HCPCS: 27310; 36415; 85014; 85018; 87070; 87075; 87205; 87635; 94762; 97161; J0690; J1170; J2250; J2405; J2704; J3010

== ENCOUNTER 2020-08-08 12:02 | Emergency (ER) | payer BC, SELFPAY ==
[2020-08-05 19:58] VITALS: BMI 23.7
[2020-08-08 12:13] VITALS: BP 132/76; PULSE 85; RESP 105; TEMP 36.8; O2SAT 99; BMI 23.7
--- NOTE | 2020-08-08 12:30 | DI.US.S_ITS ---
PROCEDURE: US PERIPH VENOUS LOW EXTREM RT INDICATIONS: pain, swelling, recent surgery TECHNIQUE: Real-time imaging, as well as color and pulse Doppler interrogation, were performed of the lower extremity deep veins from the inguinal ligament to the popliteal fossa. COMPARISON: None. FINDINGS: The common femoral, femoral and popliteal veins are normally compressible, and free of intraluminal thrombus. Color and pulse Doppler demonstrate normal phasic intraluminal flow. There is normal augmentation response to distal compression maneuver. IMPRESSION: Negative for deep venous thrombosis. Dictated by: Adi Butler M.D. on 08/08/2020 at 12:31 Approved by: Adi Butler M.D. on 08/08/2020 at 12:31
--- NOTE | 2020-08-08 12:59 | ED.EXTPRO ---
HPI - Extremity Problem General Chief complaint: Extremity Problem,Nontraumatic Stated complaint: Concern of DVT in Rt Leg Time Seen by Provider: 08/08/20 12:22 Source: patient Mode of arrival: Ambulatory Limitations: no limitations History of Present Illness HPI Narrative: 59-year-old male nonsmoker presents with a chief complaint of significant swelling in his right calf over the past day and a half. A right total knee on August 03 and was discharged the following day. Later patient had been complaining of bloody drainage from the surgical wound and was admitted to drain a postoperative hematoma. His was in contact with on-call Orthopedics this evening and he was encouraged here to be sure there was no DVT. He denies any significant pain in his calf, he denies any injury. He has had no fever or chills and he is otherwise well and free of complaint. He denies any chest pain or shortness of breath. MD Complaint: extremity pain and extremity swelling Onset (ago): day(s) Location: right Radiation: none Associated symptoms: denies other symptoms Related Data Home Medications Medication Instructions Recorded Confirmed Rytary 3 cap PO 5XD 07/28/20 08/05/20 ibuprofen 400 mg PO Q6H PRN 07/28/20 08/05/20 Previous Rx's Medication Instructions Recorded acetaminophen 650 mg PO TID 30 Days #180 tab 08/04/20 aspirin 81 mg PO BID 42 Days #84 tab 08/04/20 cephalexin [Keflex] 500 mg PO QID 7 Days #28 cap 08/06/20 docusate sodium [DOK] 100 mg PO BID #30 cap 08/06/20 oxycodone 5 mg PO Q4H PRN #30 tab 08/06/20 Allergies Allergy/AdvReac Type Severity Reaction Status Date / Time ropinirole [From Requip] AdvReac Caused Verified 08/08/20 12:13 compulsive eating/drinking Review of Systems Constitutional Constitutional: Denies chills, Denies fatigue, Denies fever(s), Denies frequent falls, Denies lethargy and Denies weakness Eyes Eyes: Denies change in vision, Denies eye discharge, Denies irritation and Denies loss of vision ENT Ears, Nose, Mouth, and Throat: Denies change in voice, Denies dizziness, Denies neck pain, Denies sore throat and Denies throat swelling Cardiovascular Cardiovascular: Denies chest pain, Denies irregular heart rhythm, Denies lightheadedness, Denies palpitations, Denies dyspnea, Denies dyspnea on exertion and Denies orthopnea Respiratory Respiratory: Denies cough, Denies dyspnea, Denies dyspnea on exertion and Denies wheezing Gastrointestinal Gastrointestinal: Denies abdominal pain, Denies change in bowel habits, Denies diarrhea, Denies nausea and Denies vomiting Musculoskeletal Musculoskeletal: Reports joint swelling, Reports limited range of motion, Denies neck pain and Denies numbness Integumentary/Breasts Skin/Breast: Denies pruritus, Denies erythema, Denies rash, Reports skin swelling, Reports unusual bruising and Denies wounds Neurologic Neurologic: Denies behavioral changes, Denies confusion, Denies dizziness, Denies frequent falls, Denies loss of vision, Denies numbness and Denies weakness Psychiatric Psychiatric: Denies anxiety, Denies behavioral changes, Denies confusion, Denies depression, Denies homicidal ideation and Denies suicidal ideation Endocrine Endocrine: Denies fatigue, Denies flushing and Denies palpitations Hematologic/Lymphatic Hematologic/Lymphatic: Denies easy bruising Allergic/Immunologic Allergic/Immunologic: Denies urticaria, Denies throat swelling and Denies wheezing Patient History Medical History Dyskinesia Hyponatremia Insomnia Nocturia Osteoarthritis Parkinson's disease (2004) RLS (restless legs syndrome) Scoliosis Surgical History History of colonoscopy with polypectomy History of vasectomy S/P deep brain stimulator placement (2013) Social History household members: spouse Smoking Status: Never smoker alcohol intake: current Smoking Status: Never smoker alcohol intake frequency: holidays/special occasions only Substance Use Type: does not use Exam Narrative Exam Narrative: GEN: AOx3 and in mild distress EYES: Pupils are equal, round, and reactive to light and accommodation. Extraoccular muscles are intact bilaterally. There is no subconjunctival hemorrhage or exudate. CHEST: Lungs are clear to auscultation bilaterally and free of wheezes, rales, or rhonchi. Heart rate is regular rhythm, there are no murmurs, clicks, rubs, or gallops. There is no chest wall tenderness. ABD: Abdomen is soft and nontender. There is no guarding or rebound. Bowel sounds are normal in all 4 quadrants. There is no mass or organomegaly. EXT: Surgical dressing and drain in place. Clean, dry and intact. Decreased ROM of R knee. Notable swelling of R calf with visible ecchymosis. No redness or significant warmth. Compartments soft. Cap refill <2seconds. No loss of sensation or muscle strength. SKIN: Warm, pink, and dry. No erythema or rash Initial Vital Signs Initial Vital Signs: Vital Signs Temperature 98.3 F 08/08/20 12:13 Pulse Rate 85 08/08/20 12:13 Respiratory Rate 105 H 08/08/20 12:13 Blood Pressure 132/76 08/08/20 12:13 Pulse Oximetry 99 08/08/20 12:13 Course Orders Ordered: ED Orders 08/08/20 12:30 US periph venous low extrem rt Stat 08/08/20 12:31 Basic Metabolic Panel Stat Complete Blood Count AUTO DIFF Stat 08/08/20 12:32 Prothrombin Time INR Stat Sodium Chloride (Normal Saline 0.9%) 1,000 mls @ 125 mls/hr IV CONT MATTIE Vital Signs Vital signs: Vital Signs - 8 hr 08/08/20 12:13 Temperature 98.3 F Pulse Rate 85 Respiratory Rate 105 H Blood Pressure 132/76 Pulse Oximetry 99 MDM - Extremity (Nontraumatic) MDM Narrative Medical decision making narrative: Multiple etiologies for patient's symptoms considered including: [Cellulitis versus deep space abscess (thought less likely given lack of significant pain, fluctuance, induration), versus gout versus other] Patient's symptoms improved over duration of stay with above-stated therapies. Findings and discharge diagnosis discussed with patient/family followed by verbalization of understanding Return precautions discussed with patient/family whom verbalize understanding. Discharge Plan Departure Patient Disposition: Home Clinical Impression: Hematoma, postoperative Qualifiers: Surgical complication system/body Area: skin Instructions: DI for Hematoma (Bruise) Activity Restrictions/Additional Instructions: *You have been diagnosed with [swelling and bruising in calf most likely from hematoma, no DVT noted on ultrasound] *What to do: * continue to take medications as directed *Follow up with your [facility], call for an appointment. Let them know you were seen in the Emergency Department and that we ask that you be seen in follow up *Return to ER if you should have any new, worsening or concerning symptoms Prescriptions: No Action ibuprofen 200 mg Capsule 400 mg PO Q6H PRN (Reason: Pain) RF: 0 Rytary 36.25-145 mg Capsule, Extended Release 3 cap PO 5XD RF: 0 acetaminophen 325 mg Tablet 650 mg PO TID 30 Days Qty: 180 RF: 0 aspirin 81 mg Tablet,Delayed Release (Dr/Ec) 81 mg PO BID 42 Days Qty: 84 RF: 0 docusate sodium [DOK] 100 mg Capsule 100 mg PO BID Qty: 30 RF: 0 oxycodone 5 mg Tablet 5 mg PO Q4H PRN (Reason: Pain, Moderate (4-6)) Qty: 30 RF: 0 cephalexin [Keflex] 500 mg capsule 500 mg PO QID 7 Days Qty: 28 RF: 0 Referrals: Miscellaneous,DoctorMD [Primary Care Provider] - [place] MD [Physician] -
[2020-08-08 13:33] VITALS: BP 139/87; PULSE 86; O2SAT 99
== END 2020-08-08 13:34 | disposition home or self-care (01) ==
PROVIDERS: Emergency Provider Emergency Medicine
DX: L76.32 Postprocedural hematoma of skin and subcutaneous tissue following other procedure (principal); G20 Parkinson's disease; G25.81 Restless legs syndrome; G24.9 Dystonia, unspecified
CPT/HCPCS: 93971; 99281; 99283

== ENCOUNTER → 2023-04-12 10:35 | Outpatient (CLI) | payer OTHER, SELFPAY ==
[2020-11-17 15:18] VITALS: BMI 23.7
--- NOTE | 2023-04-12 10:37 | DI.RAD.S_ITS ---
PROCEDURE: XR SHOULDER RT MIN 2V INDICATIONS: fall on front shoulder yesterday TECHNIQUE: 2 views of the shoulder were acquired. COMPARISON: None. FINDINGS: Bones: Minimally displaced right clavicular body fracture is noted with cortical irregularity. No other fracture or dislocation is seen. No suspicious bony lesions. Visualized ribs appear intact. Soft tissues: No suspicious soft tissue calcifications. IMPRESSION: Minimally displaced right scapular fracture. Dictated by: Misael Morgan M.D. on 04/12/2023 at 11:09 Approved by: Misael Morgan M.D. on 04/12/2023 at 11:11
== END ==
PROVIDERS: Referring Provider Physician Assistant; Visit Provider Physician Assistant
DX: S42.114A Nondisplaced fracture of body of scapula, right shoulder, initial encounter for closed fracture (principal); W19.XXXA Unspecified fall, initial encounter
CPT/HCPCS: 73030

== ENCOUNTER → 2023-05-31 09:16 | Outpatient (CLI) | payer OTHER, SELFPAY ==
[2020-11-17 15:18] VITALS: BMI 23.7
--- NOTE | 2023-05-31 | DI.RAD.S_ITS ---
PROCEDURE: FL SHOULDER INJECTION MR/CT RT INDICATIONS: ROTATOR CUFF SYNDROME COMPARISON: None. TECHNIQUE: The indications, alternatives, benefits, risks, and complications of the procedure were explained to the patient. Written informed consent was obtained and placed in the chart. The shoulder was examined fluoroscopically and a site for needle placement chosen for entry into the glenohumeral joint from an anterior approach. The skin was prepped and draped in a sterile fashion, and 1% lidocaine infiltrated from skin down to joint capsule. A spinal needle was inserted into the glenohumeral joint, and a small amount of iodinated contrast media injected to confirm intra-articular placement of the needle tip. This was followed by approximately 12 mL of iodinated contrast. The needle was removed and a dressing was applied. The patient was given postprocedural instructions and sent to the CT suite for imaging. FINDINGS: A single fluoroscopic spot image demonstrates intra-articular location of injected iodinated contrast. IMPRESSION: Successful fluoroscopically guided administration of iodinated contrast solution into the shoulder joint for CT arthrogram. Dictated by: Thee Tena M.D. on 05/31/2023 at 10:48 Approved by: Thee Tena M.D. on 05/31/2023 at 10:49
--- NOTE | 2023-05-31 | DI.CT.S_ITS ---
PROCEDURE: CT SHOULDER RIGHT WITH CON INDICATIONS: ROTATOR CUFF SYNDROME TECHNIQUE: After the intra-articular administration of 12 mL of dilute non-ionic contrast, 1-1.5 mm thick sections acquired from the acromioclavicular joint to the inferior scapula, with coronal and sagittal reformatting. COMPARISON: [facility], [place] SHOULDER INJECTION MR/CT RT, 05/31/2023, 9:32. [facility] [place], [place], XR SHOULDER 2+ VIEWS RIGHT, 04/27/2023, 14:10. FINDINGS: Image quality: Excellent. Rotator cuff: There is full-thickness tearing of the supraspinatus tendon and the infraspinatus tendon at their distal insertions with proximal tendon retraction measuring approximately 4.1 cm. The teres minor tendon remains intact. There is full-thickness tearing of the superior portion of the subscapularis tendon with approximately 1.2 cm of proximal tendon retraction. No significant rotator cuff muscle atrophy is seen. Bones: No acute osseous fracture. The humeral head is high riding and abuts the undersurface of the acromion. Full-thickness cartilage loss is seen at the superomedial humeral head. [id number] degenerative changes are seen at the acromioclavicular joint. Glenohumeral contrast material communicates with the subacromial/subdeltoid bursa and the subcoracoid bursa. No intra-articular loose body is seen. Degenerative changes are seen in the included spine. The included right ribs are intact. Soft tissues: There is diffuse labral degeneration. The biceps long head tendon is not well seen but appears to be subluxed medially relative to the intertubercular groove and located along the anterior glenohumeral joint line and anterior humeral head. The musculature surrounding the shoulder is normal in bulk. The included portions of the right lung are clear. No axillary lymphadenopathy. IMPRESSION: 1. Complete full-thickness tearing of the supraspinatus and infraspinatus tendons from their distal insertions with proximal tendon retraction measuring approximately 4.1 cm. Humeral head is high riding and abuts the undersurface of the acromion. No significant muscle atrophy is seen. 2. Full-thickness tearing of the superior portion of the subscapularis muscle with approximately 1.2 cm of proximal tendon retraction. 3. Medial subluxation of the biceps long head tendon relative to the intertubercular groove. 4. Full-thickness cartilage loss in the glenohumeral joint at the superomedial humeral head. 5. [id number] acromioclavicular joint osteoarthrosis. 6. Glenohumeral contrast material communicates with the subacromial/subdeltoid and subcoracoid bursa. No intra-articular loose body. Approved by: Killian Bello M.D. on 05/31/2023 at 15:56
[2023-05-31] MEDS: LIDOCAINE 1% 20 ML INJ (10:17)
== END ==
PROVIDERS: Referring Provider Orthopaedic Surgery; Visit Provider Orthopaedic Surgery
DX: M75.121 Complete rotator cuff tear or rupture of right shoulder, not specified as traumatic (principal); M67.88 Other specified disorders of synovium and tendon, other site; M19.011 Primary osteoarthritis, right shoulder
CPT/HCPCS: 23350; 73201; 77002

== ENCOUNTER → 2024-11-01 11:00 | Outpatient (CLI) | payer OTHER, SELFPAY ==
[2020-11-17 15:18] VITALS: BMI 23.7
--- NOTE | 2024-11-01 11:31 | EKG_ITS ---
[place] [id number] [place] [id number] Test Date: 2024-11-01 Pat Name: Clive Figueroa Department: [facility] Room: Gender: Male Payroll Director: RAIMUNDO : 1960 Requested By: Order Number: [id number] Reading MD: Eleazar Castellano MD Measurements Intervals Fraser Rate: 69 P: AR: 176 QRS: -6 QRSD: 128 T: 16 QT: 438 QTc: 469 Interpretive Statements Normal sinus rhythm Left ventricular hypertrophy with QRS widening ( R in aVL , Rafi product ) Cannot rule out Septal infarct , age undetermined Possible Lateral infarct , age undetermined Electronically Signed On 11-01-2024 13:45:38 PDT by Eleazar Castellano MD
[2024-11-01 12:26] LABS: Add Manual Diff / Slide Review NO; Basophils Absolute Auto 100 /uL (0-100); Basophils Percent Auto 0.9 % (0-2); Eosinophils Absolute Auto 100 /uL (0-450); Eosinophils Percent Auto 1.7 % (2-4); Hematocrit 39.7 % (41-53); Hemoglobin 13.6 g/dL (13.5-17.5); Lymphocytes Absolute Auto 900 /uL (1100-4500); Lymphocytes Percent Auto 16.6 % (25-40); Mean Corpuscular HGB Conc 34.2 % (30-36); Mean Corpuscular Hemoglobin 30.4 PG (26-34); Mean Corpuscular Volume 88.7 fL (80-100); Monocytes Absolute Auto 600 /uL (0-900); Neutrophils Absolute Auto 3900 /uL (1500-7000); Neutrophils Percent Auto 69.8 % (50-75); Platelet Count 262 X10^3/uL (150-400); Red Blood Cell Count 4.47 X10^6/uL (4.5-5.9); Red Cell Distribution Width 14.1 % (11.6-14.8); White Blood Cell Count 5.6 X10^3/uL (4.5-11.0)
[2024-11-01 12:39] LABS: BUN Creatinine Ratio 31.6 (6-22); Blood Urea Nitrogen 18 mg/dL (9-20); Calcium 9.3 mg/dL (8.4-10.2); Carbon Dioxide 26 mmol/L (22-32); Chloride 92 mmol/L (98-107); Estimated Glomerular Filt Rate > 60 mL/min (>60); Glucose 92 mg/dL (80-110); HEMOLYSIS < 15 (0-50); Potassium 4.9 mmol/L (3.4-5.1); Sodium 126 mmol/L (137-145)
== END ==
PROVIDERS: Referring Provider Orthopaedic Surgery Foot and Ankle Surgery; Visit Provider Orthopaedic Surgery Foot and Ankle Surgery
DX: Z01.812 Encounter for preprocedural laboratory examination (principal); Z01.818 Encounter for other preprocedural examination; R73.9 Hyperglycemia, unspecified
CPT/HCPCS: 36415; 80048; 83036; 85025; 93005